=== PATIENT | male | born 1970 | race Caucasian/White ===

== ENCOUNTER 2022-09-11 10:06 | Emergency (ER) | payer BC, SELFPAY ==
--- NOTE | ~2022-09-11 | XR_ITS ---
EXAMINATION: XR shoulder LT min 2V DATE: 09/11/2022 13:11 INDICATION: Fall. TECHNIQUE: 4 views of left shoulder were obtained. COMPARISON: None. FINDINGS: There is inferior dislocation of the acromion with respect to distal clavicle. There is wid ening of coracoclavicular interval. No fracture. The glenohumeral joint is normal. There is an old he aled left rib fracture. IMPRESSION: 1. Type III acromioclavicular separation. Reviewed, dictated and finalized at location A. UTIVE CREATIVE DIRECTOR
--- NOTE | ~2022-09-11 | XR_ITS ---
EXAMINATION: XR clavicle LT DATE: 09/11/2022 13:11 INDICATION: Fall. TECHNIQUE: 2 views of left clavicle were obtained. COMPARISON: None. FINDINGS: There is inferior dislocation of the acromion with respect to distal clavicle. There is wid ening of coracoclavicular interval. No fracture. The glenohumeral joint is not well profiled. IMPRESSION: 1. Type III acromioclavicular separation. Reviewed, dictated and finalized at location A. FIBER TAKER OFF
[2022-09-11 10:10] VITALS: BP 169/96; PULSE 109; RESP 16; TEMP 37.1; O2SAT 98
--- NOTE | 2022-09-11 13:49 | ED.UPPEXIN ---
HPI - Extremity Injury (Upper) General Chief Complaint: Extremity Injury, Upper Stated Complaint: dislocated clavicle Time Seen by Provider: 09/11/22 12:49 Source: patient Mode of arrival: ambulatory Limitations: no limitations History of Present Illness HPI narrative: This is a 52 year old male that presents to the ER for left clavicle injury sustained last night. Reports he tripped last night and fell in the grass. He fell onto his left shoulder. Since he has had left shoulder pain and decreased range of motion. He did not hit his head or lose consciousness. He was evaluated at urgent care and sent to the ER for further management. Denies any other focal injuries, numbness, or weakness. Related Data Allergies Allergy/AdvReac Type Severity Reaction Status Date / Time No Known Allergies Allergy Verified 09/11/22 13:31 Review of Systems Review of Systems: CONSTITUTIONAL: Denies fever SKIN: Denies rash MUSCULOSKELETAL: Reports joint pain, and myalgia. NEUROLOGIC: Denies numbness, or weakness. All systems reviewed & are unremarkable except as noted in HPI and below PMFSH Past Medical History Medical History (Updated 09/11/22 @ 13:55 by Emmanuelle Velasco PA-C) No active medical problems Social History Social History (Updated 09/11/22 @ 13:51 by Emmanuelle Velasco PA-C) Smoking status: Current every day smoker Exam Narrative: GENERAL: Well-appearing, well-nourished, and in no acute distress. HEAD: Normocephalic, atraumatic. EYES: EOMI. CHEST: Clear to auscultation. No respiratory distress. No wheezes rales or rhonchi HEART: Regular rate and rhythm. No murmur heard. Normal peripheral pulses. ABDOMEN: Soft, nontender, nondistended, normal active bowel sounds. EXTREMITIES: Normal range of motion, except decreased active ROM in the left shoulder above 90 degrees. Normal radial pulses. Normal sensation SKIN: Warm, dry, no rash. NEURO: No focal deficits. Alert and oriented x3. Normal gait PSYCH: Normal mood and affect Course Course Emergency Course: Patient updated on workup and plan of care. Sling ordered Vital Signs Vital signs: Vital Signs Temperature 98.7 F 09/11/22 10:10 Pulse Rate 109 H 09/11/22 10:10 Respiratory Rate 16 09/11/22 10:10 Blood Pressure 169/96 H 09/11/22 10:10 Pulse Oximetry 98 09/11/22 10:10 Oxygen Delivery Room Air 09/11/22 10:10 Temperature 98.7 F 09/11/22 10:10 Pulse Rate 109 H 09/11/22 10:10 Respiratory Rate 16 09/11/22 10:10 Blood Pressure 169/96 H 09/11/22 10:10 Pulse Oximetry 98 09/11/22 10:10 Oxygen Delivery Room Air 09/11/22 10:10 MDM - Extremity Injury (Upper) MDM Narrative Medical decision making narrative: Patient presents to the emergency department for left clavicle injury sustained last night. He is neurovascularly intact. He did not hit his head or lose consciousness. He did not report any other focal injuries or areas of pain. Left clavicle x-ray shows a type III AC separation. Patient placed in a sling. Updated on plan of care. Will be given follow-up with orthopedics. He was given warnings to return to the ER Patient incidentally noted to be hypertensive. He denies any symptoms associated with this. He was instructed to continue to monitor and follow-up with primary doctor Differential Diagnosis Differential diagnosis: Likely dislocation of shoulder, fracture of clavicle and other (AC separation) Imaging Data Radiologist's impression: ITS Impressions Clavicle X-Ray 09/11/22 13:13 IMPRESSION: 1. Type III acromioclavicular separation. Shoulder X-Ray 09/11/22 13:14 IMPRESSION: 1. Type III acromioclavicular separation. Critical Care Time Critical Care Time Critical Care Time: No Discharge Plan Discharge Clinical Impression: Separation of left acromioclavicular joint, type 3 Qualifiers: Encounter type: subsequent encounter Qualified Code(s): S43.102D - Unspecified dislocation of le
== END 2022-09-11 14:55 | disposition home or self-care (01) ==
PROVIDERS: Emergency Provider Physician Assistant
DX: S43.102A Unspecified dislocation of left acromioclavicular joint, initial encounter (principal); W01.0XXA Fall on same level from slipping, tripping and stumbling without subsequent striking against object, initial encounter; F17.210 Nicotine dependence, cigarettes, uncomplicated
CPT/HCPCS: 73000; 73030; 99283; A4565